=== PATIENT | male | born 1990 | race Caucasian/White ===

== ENCOUNTER 2016-07-30 12:08 | Emergency (ER) ==
[2016-07-30 12:12] VITALS: BP 163/83; TEMP 98.4; BMI 34.8
[2016-07-30] MEDS ORDERED: NORCO 10-325 PO STA (12:32)
--- NOTE | 2016-07-30 13:24 | CT ---
EXAM: CT THORAX HISTORY: Pain, left-sided after fall. TECHNIQUE: CT thorax without intravenous contrast. 5-mm axial sections. Coronal and sagittal re-fo rmations. COMPARISON: 03/17/2014 FINDINGS: Normal heart size and thoracic aorta. No pericardial fluid. There is no evidence of mediastinal or hilar lymphadenopathy. Lungs are clear. No consolidation, pleural fluid, vascular congestion or pneumothorax. The bones reveal no acute deformity or fracture. There is a punctate contusion of the lower lateral left chest soft tissues without noticeable hematoma. The visualized spleen is unremarkable. IMPRESSION: Small left lower lateral chest wall contusion. No fracture or pneumothorax.
--- NOTE | 2016-07-30 13:38 | ED.PDOC ---
General ED Provider: Dr. VINI MEYER Chief Complaint: Fall Stated Complaint: fall Time Seen by Physician: 12:10 Mode of Arrival: Walk-In Information Source: Patient Exam Limitations: No limitations Primary Care Provider: DEEPIKA GILMORE Nursing and Triage Documentation Reviewed and Agree: Yes Trauma/Injury Complaint Exam - Trauma Complaint/Exam Location of Pain or Injury: Reports: Other (chest wall) Mechanism of Injury: Reports: Fall Onset/Duration: 1 hr ago Symptoms Are: Still present Initial Severity: Moderate Current Severity: Moderate Character: Reports: Aching Aggravating: Reports: Movement Alleviating: Reports: Rest Associated Signs and Symptoms: Denies: LOC, Confusion, Memory loss, Lethargy, Vomiting, Bleeding, Bruising, Swelling, Extremity disuse, Painful respiration, Hoarseness, Dysphagia, Hemoptysis, Significant blood loss Related Surgical History: Reports: None Nexus Low Risk Criteria: No post-midline CS tender, No evidence of intoxicat., No Altered LOC, No focal neuro deficit, No distracting injuries Immobilization Removed Post Exam: No Differential Diagnoses: Fracture, Sprain, Strain Review of Systems - Review Of Systems Constitutional: Reports: No symptoms Eyes: Reports: No symptoms Ears, Nose, Mouth, Throat: Reports: No symptoms Respiratory: Reports: No symptoms Cardiac: Reports: Chest pain GI: Reports: No symptoms : Reports: No symptoms Musculoskeletal: Reports: No symptoms Skin: Reports: No symptoms Neurological: Reports: No symptoms Endocrine: Reports: No symptoms Hematologic/Lymphatic: Reports: No symptoms All Other Systems: Reviewed and Negative Past Medical History - Past Medical History Previously Healthy: Yes Endocrine: Reports: None Cardiovascular: Reports: None Respiratory: Reports: None Hematological: Reports: None Gastrointestinal: Reports: None Genitourinary: Reports: None Neuro/Psych: Reports: None Musculoskeletal: Reports: None Cancer: Reports: None - Surgical History General Surgical History: Reports: None - Family History Family History: Reports: None - Social History Smoking Status: Current every day smoker Hx Substance Use: No Alcohol Screening: Occasionally Physical Exam - Physical Exam Appearance: Well-appearing, No pain distress, Well-nourished Eyes: AYALA, EOMI, Conjunctiva clear ENT: Ears normal, Nose normal, Oropharynx normal Respiratory: Airway patent, Breath sounds clear, Breath sounds equal, Respirations nonlabored Cardiovascular: RRR, Pulses normal, No rub, No murmur GI/: Soft, Nontender, No masses, Bowel sounds normal, No Organomegaly Musculoskeletal: ROM intact, No edema, No calf tenderness, Limited ROM (left chest wall due to pain) Skin: Warm, Dry, Normal color Neurological: Sensation intact, Motor intact, Reflexes intact, Cranial nerves intact, Alert, Oriented Psychiatric: Affect appropriate, Mood appropriate Critical Care Note - Critical Care Note Total Time (mins): 0 Course - Course Orders, Labs, Meds: Orders Category Date Time Status Hydrocodone Bit/Acetaminophen [[place] 10-325] MEDS 07/30/16 12:32 Discontinued 1 tab PO ONCE STA CT CHEST W/O CONTRAST Stat RADS 07/30/16 12:31 Completed Medications Discontinued Medications Generic Name Dose Route Start Last Admin Trade Name Freq PRN Reason Stop Dose Admin Acetaminophen/Hydrocodone Bitart 1 tab 07/30/16 12:32 07/30/16 12:47 [place] 10-325 PO 07/30/16 12:33 1 tab ONCE STA Administration Vital Signs: Temp Pulse Resp BP Pulse Ox 07/30/16 12:09 98.4 F 86 20 163/83 H 98 Departure - Departure Time of Disposition: 13:37 Disposition: HOME SELF-CARE Discharge Problem: Sprain of chest wall Qualifiers: Encounter type: initial encounter Qualifier Code: (S23.8XXA) Sprain of other specified parts of thorax, initial encounter Instructions: Chest Wall Pain (ED), Thoracic Pain (ED) Condition: Good Pt referred to PMD for follow-up: No Additional Instructions: Please call your Family Physician as soon as possible to schedule a follow-up appointment. Allergies/Adverse Reactions: Allergies No Known Allergies Allergy (Unverified 07/30/16 12:15) Home Medications: Ambulatory Orders 1 [No Reported Medications] 03/17/14
== END 2016-07-30 13:56 | disposition home or self-care (01) ==
LOC: ED 12:08
DX: S23.8XXA Sprain of other specified parts of thorax, initial encounter (principal); F17.210 Nicotine dependence, cigarettes, uncomplicated; W19.XXXA Unspecified fall, initial encounter
CPT/HCPCS: 99283